=== PATIENT | female | born 2000 | race Caucasian/White ===

== ENCOUNTER → 2020-09-26 | Day surgery (SDC) | payer BC ==
[~2020-09-26] MED LIST: AIMOVIG AU140 MG/1 M PO; ALDACTONE50 MG PO; BUPIVACAINE HCL 0.5% INJ 30 ML VIAL INJ ONE; DEXAMETHASONE SOD PHOS INJ 4 MG/ML VIAL ONE; FENTANYL CITRATE/PF 100MCG/2 ML INJ ONE; HEATHER0.35 MG PO; KETOROLAC TROMETHAMINE 30 MG/ML VIAL ONE; LIDOCAINE 1% W/EPINEPHRINE 20 ML VIAL ONE; ONDANSETRON HCL INJ 2MG/ML 2ML 2 MG/ML VIAL ONE; POVIDONE IODINE 0.05% 0.05 % ML PO ONE; PROPOFOL IV EMULSION 10 MG/ML 20 ML VIAL ONE; SEVOFLURANE INHAL SOLN 250 ML PEN BTL ONE; SODIUM CHLORIDE 0.9% 50ML 100 ML ONE
[2020-09-26 13:00] VITALS: BP 113/79
== END | disposition home or self-care (01) ==
LOC: OR 09:34
PROVIDERS: ATTEND Orthopaedic Surgery
DX: S83.221A Peripheral tear of medial meniscus, current injury, right knee, initial encounter (principal); S83.261A Peripheral tear of lateral meniscus, current injury, right knee, initial encounter; Z01.812 Encounter for preprocedural laboratory examination; Z20.822 Contact with and (suspected) exposure to COVID-19; M94.261 Chondromalacia, right knee; M65.9 Synovitis and tenosynovitis, unspecified
CPT/HCPCS: 29876; 29881; 29882; 81025; C1713 ×3; J0690; J1100; J1885; J2405; J2704; J3010; U0002